=== PATIENT | male | born 1960 | race Caucasian/White ===

== ENCOUNTER 2019-05-01 08:09 | Inpatient (IN) | payer OTHER, SELFPAY ==
[2019-04-29 15:08] VITALS: BMI 30.5
[2019-05-01] VITALS (16 sets, daily range): BP systolic 106–157; BP diastolic 62–98; PULSE 87–113; RESP 9–20; TEMP 35.9–36.8; O2SAT 92–100; BMI 28.7
--- NOTE | 2019-05-01 | DI.RAD.S_ITS ---
PROCEDURE: XR LUMBAR SPINE 2-3V INDICATIONS: L45/S1 LAMINECTOMY AND INSTRUMENTED POSTERIOR FUSION TECHNIQUE: 2 views of the lumbar spine were acquired. COMPARISON: None. FINDINGS: 2 intraoperative fluoroscopy images demonstrate discectomy and posterior fusion at L4-L5-S1. Pedicular screws and fusion rods are in appropriate position. IMPRESSION: Discectomy and posterior fusion at L5-L5-S1. Dictated by: Ally Harrington M.D. on 05/01/2019 at 16:27 Approved by: Ally Harrington M.D. on 05/01/2019 at 16:28
[2019-05-01 08:45] LABS: Add Manual Diff / Slide Review NO; Basophils Absolute Auto 0 /uL (0-100); Basophils Percent Auto 0.3 % (0-2); Eosinophils Absolute Auto 100 /uL (0-450); Hematocrit 38.1 % (41-53); Hemoglobin 13.3 g/dL (13.5-17.5); Lymphocytes Absolute Auto 1300 /uL (1100-4500); Lymphocytes Percent Auto 27.2 % (25-40); Mean Corpuscular HGB Conc 34.9 % (30-36); Mean Corpuscular Hemoglobin 32.4 PG (26-34); Mean Corpuscular Volume 92.9 fL (80-100); Monocytes Absolute Auto 500 /uL (0-900); Monocytes Percent Auto 9.3 % (3-14); Neutrophils Absolute Auto 3100 /uL (1500-7000); Neutrophils Percent Auto 62.2 % (50-75); Platelet Count 334 X10^3/uL (150-400); Red Cell Distribution Width 12.8 % (11.6-14.8)
[2019-05-01 08:55] LABS: BUN Creatinine Ratio 18.6 (6-22); Blood Urea Nitrogen 13 mg/dL (9-20); Calcium 9.3 mg/dL (8.4-10.2); Carbon Dioxide 28 mmol/L (22-32); Chloride 101 mmol/L (98-107); Estimated Glomerular Filt Rate > 60.0 mL/min (>60); Glucose 114 mg/dL (70-100); HEMOLYSIS < 15 (0-50); Potassium 3.9 mmol/L (3.4-5.1); Sodium 139 mmol/L (137-145)
[2019-05-01] MEDS: LACTATED RINGERS 1,000 ML 42 ML IV ×2 (09:34→13:31)
--- NOTE | 2019-05-01 10:37 | PM.PREOP ---
Pre-operative Note Interval Note History & Physical reviewed/Exam performed by Physician: Yes Changes to H&P: No
[2019-05-01] MEDS: CEFAZOLIN 2 GM/100 ML FROZ.PIGGY IV ×2 (11:30→19:23)
--- NOTE | 2019-05-01 12:10 | SUR.OPER ---
Prone on spine table, head in foam head support, padded chest and pelvic supports, gel pad at knees, lower legs supported by pillows; nipples, genitalia and toes free of pressure, arms secured on foam padded arm boards at <90 degrees abduction. Tape over blanket at thigh secured to table.
[2019-05-01] MEDS: VANCOMYCIN 1,000 MG VIAL 1000 MG TOP (12:13)
[2019-05-01] MEDS: SODIUM CHLORIDE 0.9% 1,000 ML, GENTAMICIN 80 MG IRR (12:13)
[2019-05-01] MEDS: BUPIVACAINE 0.5% (PF) 4 ML, MORPHINE-PF 4 MG, BUTORPHANOL 1 MG, fentaNYL 100 MCG INJ (12:14)
[2019-05-01] MEDS: THROMBIN (RECOMBINANT) 5,000 UNIT VIAL 5000 UNIT TOP (12:18)
--- NOTE | 2019-05-01 15:50 | P.OP_ITS ---
Operative Date/Time/Diagnoses Date of procedure: 05/01/19 Time of procedure: 15:50 Pre-op diagnosis: Lumbar stenosis with radiculopathy Lumbar spondylolisthesis Post-op diagnosis: same Procedure & Clinicians Procedure: L4-5, L5-S1 TLIF (post/post innerbody fusion) with cages L4, L5, S1 instrumentation Iliac crest bone graft aspirate L4-5, L5-S1 laminectomies Use of microscope Placement of epidural catheter Same procedure as scheduled: Yes Indications: [age] year old male with intractable pain from stenosis. They had failed conservative management and requested operative intervention. Risks and benefits of surgery were discussed and appropriate consents were obtained. 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 A time-out was performed. They were then rolled over to the well- padded Earle table in the prone position. Preoperative antibiotics were given. The back was prepped and draped in the standard sterile fashion. Using fluoroscopy, a 4 cm longitudinal incision was made to the left of the midline. We used Bovie to come down to and split the lumbodorsal fascia. Using fluoroscopy and monitoring, we then percutaneously placed Jamshidi needles down the pedicles of L4, L5, and S1 on the left side. These were changed out to guidewires and then we tapped and then placed the NuVasive MAS Reline screw shanks. We then opened up the retractors at L5 and S1 and used Bovie to clear up the posterolateral gutter as well as medially along the lamina to the spinous processes. A bur was used to decorticate the transverse process and sacral ala of L5 and S1. We brought in the microscope. Using a combination of bur and Kerrison rongeurs, a laminectomy was performed from the left side at L5-S1. We cleared over past the midline and carefully depressed the dura until we were able to decompress the opposite side. We cleared out the neural foramen. The patient had a bifid nerve root at this level but we are able to gradually free this up so that we could retract the S1 nerve root medially along with the dura. We had do a facetectomy to open up the foramen adequately for the L5 root. This completed the laminectomy at L5-S1. We then began the TLIF prep. We removed more of the facet all the way up to the pedicle to prep at L5-S1. We tried to minimize all all of our retraction along the bifid root and the disc was exposed. The disc was prepped with bipolar and then an annulotomy was performed. We performed a diskectomy using a combination of paddles, duke, pituitaries, and curettes. We distracted the disc using a paddle and locked the retractor in an open position. We then filled the disc space with Osteocel bone graft. We then placed a 7 mm globus Rise cage under fluoroscopy and expanded it. We then filled this in with more bone graft. The distraction on the retractor was released to compress down. This completed the posterior interbody fusion portion of the TLIF at L5-S1. We then moved the retractor blade up to L4 and exposed the L4-5 gutter and lamina. The L4 transverse process was decorticated with the bur. We used a bur and Kerrison rongeur is to perform a laminectomy on the left at L4-5. We carefully cleared all the way across to the opposite side. We cleared out the neural foramen. The exiting L4 nerve root was crushed on the left-hand side. We had used an osteotome to remove all of the facet until we finally had enough space to expose the root. This completed the laminectomy at L4-5. This was separate and distinct from the prep for the TLIF as we had to do extensive canal decompression as well as decompression of the foramen. We then carefully retracted the dura medially and performed a diskectomy with an annulotomy. We prepped the disc with paddles and Duke and curettes and pituitaries. We placed bone graft into the disc space for the anterior fusion. We placed a 8 mm globus Rise cage and expanded under fluoroscopy and then added more bone graft afterwards. This completed the posterior interbody fusion portion of the TLIF at L45. We then placed the screw heads, karen, and locked down the set screws. The wound was copiously irrigated. A small stab incision was made over the PSIS. We used a Jamshidi needle to aspirate several mL of bone marrow from the pelvis. This was mixed with the remaining Osteocel and combined with all of the locally harvested bone graft and placed in the posterolateral gutter for the posterior fusion of the TLIF at L4-5 and L5-S1. An epidural catheter was then placed in the spinal canal by carefully depressing the dura and advancing it 6 cm cephalad under the remaining lamina without resistance. The muscle fascia was closed. The catheter was then injected with a solution containing 4 mL of 0.5% Marcaine, 1 mg Stadol, 4 mg Duramorph, and 100 mcg of fentanyl. This was injected without resistance and the catheter was pulled. We then went to the opposite side. Again using fluoroscopy, a 3 cm incision was made and Bovie was used to come down to split the fascia. Using neural monitoring and fluoroscopy, Jamshidi needles were advanced down the pedicles of L4, L5, and S1 on the right side. These were switched over guidewires, tapped, and screws placed. We then placed a karen and locked the set screws on this side. The wound was irrigated. The fascia was closed. Vancomycin powder was placed in the wounds. The superficial and skin were closed. A sterile dressing was placed. The patient was then rolled over extubated and brought to recovery room without complications. Complications: none Post-operative Condition: stable Disposition: PACU Plan for aftercare: Inpatient. Up with therapy.
[2019-05-01] MEDS: HYDROMORPHONE 2 MG INJ 0.5 MG IV ×3 (16:06→16:26)
[2019-05-01] MEDS: MEPERIDINE 50 MG/ML INJ 20 MG IV (16:21)
[2019-05-01] MEDS: hydrOXYzine 50 MG/ML INJ 25 MG IM (16:25)
--- NOTE | 2019-05-01 16:28 | SUR.PHASEI ---
Pt reported 2/10 pain when at rest.
--- NOTE | 2019-05-01 16:33 | SUR.PHASEI ---
Pt denied tingling or numbness to BLE. Intermittent trembling to BLE. Dr. Hoffman notified of shaking, Demerol ordered and given. Pt has reported feeling like he is wearing sunglasses and has earbuds in. Is responding to questions and commands appropriately.
--- NOTE | 2019-05-01 16:45 | SUR.PHASEI ---
Report called to [place].
--- NOTE | 2019-05-01 16:47 | SUR.PHASEI ---
Pt rated pain 2-3/10
--- NOTE | 2019-05-01 17:08 | SUR.PHASEI ---
Pt transferred to the floor with belongings bag, partial in place. VS stable. IV saline locked. Deja checked with RN. Report to [facility]
[2019-05-01] MEDS: LACTATED RINGERS 1,000 ML 125 ML IV (17:42)
[2019-05-01] MEDS: CELECOXIB 200 MG CAPSULE 400 MG PO (17:55)
[2019-05-01] MEDS: DOCUSATE 100 MG CAPSULE PO (20:42)
[2019-05-01] MEDS: HYDROCODONE/ACET 5/325 TABLET 1 TAB PO (20:42)
[2019-05-01] MEDS: GABAPENTIN 300 MG CAPSULE 900 MG PO (20:42)
[2019-05-01] MEDS: SENNOSIDES 8.6 MG TABLET 17.2 MG PO (20:42)
--- NOTE | 2019-05-01 22:12 | PC.NURSE ---
pt arrived 1656, drowsy, A&OX3. 94% 2L desat to 86 when sleeping. pulse ox. pt has hx sleep apnea, but does not use a cpap at home. gave 1 tab of norco for pain 01/03. foot scds on. romero patent. oriented pt to the room. call light in reach bed alarm active. pt currently laying on his rt. side.
[2019-05-01] MEDS: hydrOXYzine pamoate 25 MG CAPSULE PO (23:41)
--- NOTE | 2019-05-01 23:57 | PC.NURSE ---
Addendum entered by Mariah Gould R.N. 05/02/19 05:35: Slept only briefly. Taking in good po intake so IVF d'cd earlier. Complains of pain starting to intensify with current severity of 2/10; medicated with Vicodin + Vistaril per patient request; declined ice. Turned side to side to change underpad. Original Note: Patient is alert and oriented. Breath sounds CTA with RA sat of 95%; on continuous oximetry. HRR but tachy in low 100's. Denies nausea. BT hypoactive; denies flatus. Indwelling catheter is patent; urine clear, dark yellow. Assists in log rolling. Dressing to back is intact with shadow drainage noted. Complains of 7/10 pain with movement and 2/10 pain at rest; medicated with Vistaril (too early for additional Vicodin) and ice applied. Discussed that he can have IV pain medication if unable to wait until next Vicodin is due at 0042. Chronic numbness in bilateral hands unchanged. CMS is intact. Wearing foot SCD's. Fall risk is moderate; calls for assistance appropriately.
[2019-05-02] MEDS: HYDROCODONE/ACET 5/325 TABLET 2 TAB PO ×3 (01:04→14:23)
[2019-05-02] MEDS: CEFAZOLIN 2 GM/100 ML FROZ.PIGGY IV (02:30)
[2019-05-02] MEDS: HYDROCODONE/ACET 5/325 TABLET 1 TAB PO (05:22)
[2019-05-02] MEDS: hydrOXYzine pamoate 25 MG CAPSULE PO (05:23)
[2019-05-02 05:47] VITALS: BP 147/68; PULSE 108; RESP 16; TEMP 37; O2SAT 97
[2019-05-02 05:49] LABS: Hematocrit 31.4 % (41-53)
[2019-05-02] MEDS: PANTOPRAZOLE 20 MG TABLET PO (08:25)
[2019-05-02] MEDS: LOSARTAN 50 MG TABLET 100 MG PO (08:25)
[2019-05-02] MEDS: LORATADINE 10 MG TABLET PO (08:25)
[2019-05-02] MEDS: DOCUSATE 100 MG CAPSULE PO (08:26)
[2019-05-02] MEDS: CELECOXIB 200 MG CAPSULE PO (08:26)
[2019-05-02] MEDS: hydroCHLOROthiazide 25 MG TABLET PO (08:27)
[2019-05-02] MEDS: GLUCOSAMINE/CHONDROITIN CAPSULE 2 EACH PO (08:28)
[2019-05-02 08:42] VITALS: BP 122/84; PULSE 97; RESP 16; TEMP 37.2; O2SAT 96
--- NOTE | 2019-05-02 08:44 | PM.PNPO.1 ---
Subjective Subjective Date Patient Seen: 05/02/19 Time Patient Seen: 08:44 Interval history: He is doing very well. No more leg pain. Back pain is about 1/10 at rest but increases with activity. Exam Vital Signs (past 8 hours): - 05/02/19 05:47 05/02/19 08:42 Temperature 98.6 F 98.9 F Pulse Rate 108 H 97 H Respiratory Rate 16 16 Blood Pressure 147/68 H 122/84 Pulse Oximetry 97 96 Oxygen Delivery Method Room Air Oxygen Flow Rate 0 Const Orientation: alert and oriented x3 Back/Spine/Pelvis Other: CDI. 5/5 motor both lower extremities Objective Labs Result Diagrams: 05/02/19 05:15 05/01/19 08:34 Labs: Laboratory Results - last 24 hr 05/01/19 05/01/19 05/02/19 08:34 08:34 05:15 WBC 5.0 RBC 4.10 L Hgb 13.3 L 11.0 L Hct 38.1 L 31.4 L MCV 92.9 MCH 32.4 MCHC 34.9 RDW 12.8 Plt Count 334 Neut % (Auto) 62.2 Lymph % (Auto) 27.2 [place] % (Auto) 9.3 Eos % (Auto) 1.0 L Baso % (Auto) 0.3 Neut # (Auto) 3100 Lymph # (Auto) 1300 [place] # (Auto) 500 Eos # (Auto) 100 Baso # (Auto) 0 Sodium 139 Potassium 3.9 Chloride 101 Carbon Dioxide 28 BUN 13 Creatinine 0.70 Estimated GFR > 60.0 BUN/Creatinine Ratio 18.6 Glucose 114 H Calcium 9.3 Assessment & Plan Post-op Postoperative Procedures: Procedures Operation Date: 05/01/19 10:45 Actual Procedures Side Surgeon p L45, L5S1 laminectomy and instrumented posterior fusion w/ bone graft Breezy Colon MD He is doing very well. Mobilize today with physical therapy. He is hoping to be able to go home later on this afternoon. I explained him that he has to be able to pass physical therapy with stairs, getting on and off of the toilet, etc and needs to be independent. If he is doing well he could possibly go home later.
[2019-05-02] MEDS: GABAPENTIN 300 MG CAPSULE 900 MG PO ×2 (08:56→14:24)
--- NOTE | 2019-05-02 09:10 | PT.IIE ---
Current Diagnoses Spondylolisthesis, lumbar region (05/01/19) Spinal stenosis, lumbar region with neurogenic claudication (05/01/19) Surgery Performed Operation Date: 05/01/19 10:45 Actual Procedures p L45, L5S1 laminectomy and instrumented posterior fusion w/ bone graft - Breezy Colon MD Surgical History (Last Updated 04/29/19 @ 15:14 by Radha Herrera RN) H/O left wrist surgery (Acute) Hx of cervical discectomy (Acute) Hx of hernia repair (Acute) S/P cervical disc replacement (Acute) S/P epidural steroid injection (Acute) Medical History (Last Updated 04/29/19 @ 15:16 by Radha Herrera RN) Former smoker (Acute) GERD (gastroesophageal reflux disease) (Acute) HTN (hypertension) (Acute) Lumbar stenosis with neurogenic claudication (Acute) Spondylolisthesis (Acute) Physical Therapy Inpatient Evaluation/Re-Eval M1 PT/OT-IP Prior Functional Status Start: 05/02/19 12:07 Freq: NEEDED Status: Active Protocol: Document 05/02/19 09:10 AB (Rec: 05/02/19 12:19 AB [email or web address]) Medical Review Prior Functional Status Medical History Reviewed Yes Communication able to make needs known Mobility and Gait pt stated that he is independent with all mobilities and ambulation without AD Social History Household Members spouse Living Arrangements House Number of Floors (Floors) Two Floors Number of Stairs To Enter/Railing? 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 PT-IP Current Condition Start: 05/02/19 12:07 Freq: NEEDED Status: Active Protocol: Document 05/02/19 09:10 AB (Rec: 05/02/19 12:19 AB [id number]) Physical Therapy Current Condition Current Condition Evaluation Date 05/02/19 Treatment Diagnosis s/p L4-S1 TLIF/lami; difficulty in walking Onset Date 05/01/19 Precautions Lumbar Precautions Log Roll,No Twisting,Limit Bending,Lifting Restriction of 10 lbs,Gait Belt above Incisional Area M3 PT-IP Subjective Start: 05/02/19 12:07 Freq: NEEDED Status: Active Protocol: Document 05/02/19 09:10 AB (Rec: 05/02/19 12:19 AB [email or web address]) Subjective Physical Therapy Visit Type Type Initial Evaluation Visit Start Time 09:10 Visit Stop Time 10:01 Total Visit Minutes 51 Number of SATELLITE TELEVISION INSTALLER Visits 0 Physical Therapy Visit Comments Patient Comments pt agreeable to do PT Therapy Pain Assessment Pain When Pain Assessed During Mobility Pain Present Pain Present Pain Reported Location Back Intensity 15 Scale Used Numeric (1 - 10) Pain Management Techniques Apply Cold,Re-positioning, Timing of Activity with Medications M4 PT-IP Mobility and Gait Start: 05/02/19 12:07 Freq: NEEDED Status: Active Protocol: Document 05/02/19 09:10 AB (Rec: 05/02/19 12:19 [email or web address]) PT-Bed Mobility Assessment Supine to Sit Supine to Sit Standby Assistance Sit to Supine Sit to Supine Standby Assistance Scooting Scooting to Edge of Bed Standby Assistance Scooting Up and Down in Bed Standby Assistance PT-Transfer Assessment Sit to and From Stand Sit to and from Stand Standby Assistance,1 Person Assistance,Use of Upper Extremities Equipment Transfer Assistive Device Gait Belt,Front Wheeled Walker Orthotic/Prosthetic Devices or Brace: No Transfers Transfer Destination Chair Transfer Technique pt ambulated using FWW Transfer Ability Level of Assist Standby Assistance,Use of Upper Extremities Comments Mobility Comments pt completed bed mobility training x 4 reps initially requiring max cues but able to perform without cues after 2 reps. completed sit <>stand x 4 reps SBA with initial cues. Gait Assessment Gait Gait Assistance Required: Standby Assistance Distance (Feet) 300 Able to Maintain Weight Bearing Status Yes During Gait Assistive Devices Assistive Device Gait Belt,Front Wheeled Walker Gait Deviations General Gait Pattern Antalgic Factors Limiting Gait Function Factors Limiting Gait Function Decreased Activity Tolerance, Decreased Strength,Limited Range of Motion,Pain,Poor Balance Stair Climbing Assessment Evaluation Level of Assist On Stairs Standby Assistance Devices Stair Climbing Assistive Devices Left Railing,Right Railing Technique/Endurance Stair Climbing Direction Ascend and Descend Stair Climbing Technique Step to Step Number of Steps Climbed 3 Query Text: Stair Climbing Set # Repetitions (reps) 2 Comments Stair Climbing Comments pt completed up/down steps using bilateral rails step over step SBA completed up/down steps using 1 rail step to step SBA PT-Balance Assessment Sitting Balance and Reactions Static Sitting Balance Ability Good Dynamic Sitting Balance Ability Good Standing Balance and Reactions Static Standing Balance Ability Fair Dynamic Standing Balance Ability Fair Device Used FWW M5 PT-IP Objective Assessments Start: 05/02/19 12:07 Freq: NEEDED Status: Active Protocol: Document 05/02/19 09:10 AB (Rec: 05/02/19 12:19 AB [email or web address]) Orientation Orientation/Cognition Level of Alertness Alert Orientation Name,Age,Birthday,Month,Date, Year,Day of Week,Place, Situation Safety Awareness Understands Safety Issues Memory Description No Deficits Noted Gross Range of Motion Lower Extremity ROM Assessment Within Functional Limits Strength Lower Extremity Strength Assessment Within Functional Limits Coordination Assessment Gross Coordination Gross Coordination WNL Sensation Assessment Sensation Gross Sensation WNL Muscle Tone Muscle Tone WNL Yes M6 PT-IP Treatment Start: 05/02/19 12:07 Freq: NEEDED Status: Active Protocol: Document 05/02/19 09:10 AB (Rec: 05/02/19 12:19 AB [email or web address]) Physical Therapy Treatment Education Education Provided Precautions,Weight Bearing Status,Post-Op Packet,Safety M7 PT-IP Assessment and Plan Start: 05/02/19 12:07 Freq: NEEDED Status: Active Protocol: Document 05/02/19 09:10 AB (Rec: 05/02/19 12:19 AB [email or web address]) PT Summary Assessment and Plan Potential Rehabilitation Potential Good Status of Condition at Evaluation Stable Summary Impairments Pain,ROM,Strength,Balance, Coordination,Sensation,Tone, Cognition,Bed Mobility, Transfers,Gait,Activity Tolerance Assessment Summary pt requirng SBA with mobility and plans to go home with spouse to assist him. pt may go home when medically stable. Goals Bed Mobility Goal Independent Transfer Goal Independent,Front Wheeled Walker Gait Goal Independent,Front Wheel Walker Gait Distance 350 Other Goals up/down 4 steps with R rail ascending mod I Days to Meet Goals 3 Frequency of Treatment Frequency Of Treatment Twice a Day Treatment Plan Physical Therapy Treatment Plan Bed Mobility Training,Transfer Training,Gait Training, Therapeutic Exercise,Balance Retraining,Post Op Education, Discharge Planning,Hot or Cold Pack,Neuromuscular Re-ed, Coordination Retraining,Manual Therapy Recommendations To Nursing Amount of Assist Needed Standby Assistance Discharge Recommendations PT Discharge Recommendations Home with Assistance Equipment Needed for Home Before FWW: pt stated that he can Discharge borrow his dad's FWW
[2019-05-02 11:26] VITALS: PULSE 106; RESP 22; O2SAT 95
[2019-05-02 11:45] VITALS: BP 127/70; PULSE 107; RESP 16; TEMP 36.9; O2SAT 96
--- NOTE | 2019-05-02 13:46 | OT.IP.EVAL ---
Current Diagnoses Spondylolisthesis, lumbar region (05/01/19) Spinal stenosis, lumbar region with neurogenic claudication (05/01/19) Surgery Performed Operation Date: 05/01/19 10:45 Actual Procedures p L45, L5S1 laminectomy and instrumented posterior fusion w/ bone graft - Breezy Colon MD Past Medical History (Last Updated 04/29/19 @ 15:16 by Radha Herrera RN) Former smoker (Acute) GERD (gastroesophageal reflux disease) (Acute) HTN (hypertension) (Acute) Lumbar stenosis with neurogenic claudication (Acute) Spondylolisthesis (Acute) Surgical History (Last Updated 04/29/19 @ 15:14 by Radha Herrera RN) H/O left wrist surgery (Acute) Hx of cervical discectomy (Acute) Hx of hernia repair (Acute) S/P cervical disc replacement (Acute) S/P epidural steroid injection (Acute) Occupational Therapy Inpatient Evaluation/Re-Eval M1 PT/OT-IP Prior Functional Status Start: 05/02/19 12:07 Freq: NEEDED Status: Active Protocol: Document 05/02/19 13:34 CGR (Rec: 05/02/19 13:45 CGR [id number]) Medical Review Prior Functional Status Medical History Reviewed Yes Communication able to make needs known Mobility and Gait pt stated that he is independent with all mobilities and ambulation without AD Activities of Daily Living and IADL's Pt was IND with all ADLs and IADLs. Social History Household Members spouse Living Arrangements House Number of Floors (Floors) Two Floors Number of Stairs To Enter/Railing? 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 Diagnosis Onset Date 05/01/19 Post Operative Precautions Lumbar Precautions Log Roll,No Twisting,Limit Bending,Lifting Restriction of 10 lbs,Gait Belt above Incisional Area M3 OT- IP Subjective and Pain Start: 05/02/19 13:33 Freq: Status: Active Protocol: Document 05/02/19 13:34 CGR (Rec: 05/02/19 13:45 CGR [id number]) OT- Subjective Occupational Therapy Visit Type Type Initial Evaluation Visit Start Time 10:16 Visit Stop Time 11:15 Total Visit Minutes 59 Notes Pt's presetn throughout session. Occupational Therapy Visit Comments Patient Comments Oh my gosh, I wouldn't have throught about how to get dressed! OT Pain Assessment Pain When Pain Assessed At Rest Pain Present Pain Present Pain Reported Location Back Intensity 1 Scale Used Numeric (1 - 10) Management Techniques Distraction,Timing of Activity with Medications M4 OT- IP ADL's Start: 05/02/19 13:33 Freq: Status: Active Protocol: Document 05/02/19 13:34 CGR (Rec: 05/02/19 13:45 CGR [id number]) OT [id number] Comments OT Self-Feeding Comments Not meal time. OT ADL-Grooming General Evaluation Grooming Ability Independent Areas Needing Assistance Face Washing Comments OT Grooming Comments standing at sink OT ADL-Oral Care General Eval Oral Care Ability Independent Areas of Assistance Brushing Teeth Comments Oral Care Comments standing at sink OT ADL-Dressing General Eval Upper Body Dressing Ability Independent Lower Body Dressing Ability Independent Areas Needing Assistance Underpants/Brief,Pants/Shorts, Socks,Shoes Assistive Devices Dressing Assistive Devices Dressing Stick,Dental Associate,Sock Aid Comments OT Dressing Comments Pt educated on how to use hip kit and then practiced socks x 3 and underwear. Pt assisted with finding duplicate hip kit on his [employer] cammy per pt request. OT ADL-Toileting General Evaluation Toileting Ability Independent Comments OT Toileting Comments Educated on safe use of walker for standing urination and toilet transfers. OT ADL-Bathing Comments OT Bathing Comments Not performed in this session. M5 OT- IP IADL's Start: 05/02/19 13:33 Freq: Status: Active Protocol: Document 05/02/19 13:34 CGR (Rec: 05/02/19 13:45 CGR [id number]) OT-Instrumental Activities of Daily Living Deficits IADL Deficits Identified No Deficits Home Safety Awareness Awareness of Need for Assistance at Home Good Awareness Ability to Problem Solve Emergency Able to Problem Solve Situations Medication Management Medication Management No Deficits Identified Money Management Money Management No Deficits Identified Meal Preparation Meal Preparation Caregiver Provides Assist Vocal Artist Vocal Artist Caregiver Provides Assist Driving Driving Caregiver Provides Assist M6 OT- IP Functional Cognition Start: 05/02/19 13:33 Freq: Status: Active Protocol: Document 05/02/19 13:34 CGR (Rec: 05/02/19 13:45 CGR [id number]) Cognitive Factors Limiting Selfcare Function Cognitive Ability Level of Alertness Alert Patient Orientation Name,Age,Birthday,Month,Date, Year,Day of Week,Place, Situation Attention Span Ability Capable of Focused Attention, Capable of Sustained Attention Ability to Follow Commands Able to Follow Multi-Step Commands Memory Description No Deficits Noted Safety Awareness No Deficits Noted Problem Solving Ability No deficits Noted Executive Function Ability No Deficits Noted Abstract Thinking Ability No Deficits Noted OT- Vision and Hearing OT- Hearing Assessment OT- Hearing Assessment WFL OT- Vision Assessment Visual Acuity Glasses For Reading Visual Attentiveness WFL Occular Pursuits WFL Visual Convergence WFL Visual Nina WFL Diplopia Absent M7 OT- IP Mobility and Balance Start: 05/02/19 13:33 Freq: Status: Active Protocol: Document 05/02/19 13:34 CGR (Rec: 05/02/19 13:45 CGR [id number]) OT-Transfer Assessment Sit to and From Stand Sit to and from Stand Standby Assistance Transfers Transfer Ability Standby Assistance Technique Transfer Destination Chair,Toilet Transfer Technique Stand Step Pivot Devices Transfer Assistive Devices Gait Belt,Front Wheeled Walker OT- Gait Assessment Gait Gait Assistance Required: Standby Assistance Assistive Devices Assistive Device Gait Belt,Front Wheeled Walker Comments Gait Ability Comments mobility aroudn the room with verbal cues for reminders on how to use the walker for increased safety. OT- Balance Assessment Sitting Balance and Reactions Static Sitting Balance Ability Normal Dynamic Sitting Balance Ability Normal Standing Balance and Reactions Static Standing Balance Ability Normal Dynamic Standing Balance Ability Normal M8 OT- IP Objective Assessments Start: 05/02/19 13:33 Freq: Status: Active Protocol: Document 05/02/19 13:34 CGR (Rec: 05/02/19 13:45 CGR [id number]) OT Gross Range of Motion Upper Extremity Range of Motion Assessment Within Functional Limits OT Strength Upper Extremity Strength Assessment Within Functional Limits OT- Coordination Assessment Upper Extremity Finger to Nose Test Within Functional Limits Finger Tapping Test Within Functional Limits OT-Muscle Tone Assessment Muscle Tone WNL Yes OT Sensation Assessment Comments Summary Comments Pt states typical sensation to the hands and arms. Edema Edema Absent M9 OT- IP Assessment and Plan Start: 05/02/19 13:33 Freq: Status: Active Protocol: Document 05/02/19 13:34 CGR (Rec: 05/02/19 13:45 CGR [id number]) OT Summary Assessment and Plan Potential Rehabilitation Potential Excellent Analytic Complexity at Evaluation Low Summary OT Impairments Pain Progress Towards Goals Goals Met Assessment Summary Pt presents as a low complexity evaluation. Pt is progressing well s/p surgery and is participatory in self care using DME to maintain back precautions. present to assist with reminders in the future. Pt likely to progress well at home. Frequency of Treatment Frequency Of Treatment Discharge Discharge Recommendations OT Discharge Recommendations Home with Assistance Home Equipment Needs Pt has all necessary equipment . To order hip kit, family to get him a walker and shower chair.
--- NOTE | 2019-05-02 15:30 | PT.IPTN ---
Current Diagnoses Spondylolisthesis, lumbar region (05/01/19) Spinal stenosis, lumbar region with neurogenic claudication (05/01/19) Surgery Performed Operation Date: 05/01/19 10:45 Actual Procedures p L45, L5S1 laminectomy and instrumented posterior fusion w/ bone graft - Breezy Colon MD Physical Therapy Treatment Note M2 PT-IP Current Condition Start: 05/02/19 12:07 Freq: NEEDED Status: Active Protocol: Document 05/02/19 09:10 AB (Rec: 05/02/19 12:19 AB [id number]) Physical Therapy Current Condition Current Condition Evaluation Date 05/02/19 Treatment Diagnosis s/p L4-S1 TLIF/lami; difficulty in walking Onset Date 05/01/19 Precautions Lumbar Precautions Log Roll,No Twisting,Limit Bending,Lifting Restriction of 10 lbs,Gait Belt above Incisional Area M3 PT-IP Subjective Start: 05/02/19 12:07 Freq: NEEDED Status: Active Protocol: Document 05/02/19 15:30 GGD (Rec: 05/02/19 15:49 GGD [id number]) Subjective Physical Therapy Visit Type Type Treatment Note Visit Start Time 15:15 Visit Stop Time 15:30 Total Visit Minutes 15 Physical Therapy Visit Comments Patient Comments Pt states he would like to D/C home today. Therapy Pain Assessment Pain When Pain Assessed During Mobility Pain Present Pain Present Pain Reported Location Back Intensity 4 Scale Used Numeric (1 - 10) M4 PT-IP Mobility and Gait Start: 05/02/19 12:07 Freq: NEEDED Status: Active Protocol: Document 05/02/19 15:30 GGD (Rec: 05/02/19 15:49 GGD [id number]) PT-Bed Mobility Assessment Rolling Type of Rolling Log Rolling,Bilateral Level of Assist Independent Supine to Sit Supine to Sit Independent Sit to Supine Sit to Supine Independent Scooting Scooting to Edge of Bed Independent PT-Transfer Assessment Sit to and From Stand Sit to and from Stand Standby Assistance,1 Person Assistance,Use of Upper Extremities Equipment Transfer Assistive Device Gait Belt,Front Wheeled Walker Orthotic/Prosthetic Devices or Brace: No Transfers Transfer Destination Bed,Chair Transfer Ability Level of Assist Standby Assistance,Use of Upper Extremities Gait Assessment Gait Gait Assistance Required: Standby Assistance Distance (Feet) 150 Able to Maintain Weight Bearing Status Yes During Gait Assistive Devices Assistive Device Gait Belt,Front Wheeled Walker Gait Deviations General Gait Pattern Antalgic Factors Limiting Gait Function Factors Limiting Gait Function Decreased Activity Tolerance, Decreased Strength,Limited Range of Motion,Pain,Poor Balance M5 PT-IP Objective Assessments Start: 05/02/19 12:07 Freq: NEEDED Status: Active Protocol: Document 05/02/19 09:10 AB (Rec: 05/02/19 12:19 AB [id number]) Orientation Orientation/Cognition Level of Alertness Alert Orientation Name,Age,Birthday,Month,Date, Year,Day of Week,Place, Situation Safety Awareness Understands Safety Issues Memory Description No Deficits Noted Gross Range of Motion Lower Extremity ROM Assessment Within Functional Limits Strength Lower Extremity Strength Assessment Within Functional Limits Coordination Assessment Gross Coordination Gross Coordination WNL Sensation Assessment Sensation Gross Sensation WNL Muscle Tone Muscle Tone WNL Yes M6 PT-IP Treatment Start: 05/02/19 12:07 Freq: NEEDED Status: Active Protocol: Document 05/02/19 15:30 GGD (Rec: 05/02/19 15:49 GGD [id number]) Physical Therapy Treatment Education Education Provided Precautions,Safety M7 PT-IP Assessment and Plan Start: 05/02/19 12:07 Freq: NEEDED Status: Active Protocol: Document 05/02/19 15:30 GGD (Rec: 05/02/19 15:49 GGD [id number]) PT Summary Assessment and Plan Summary Assessment Summary Pt improving with mobility. He was able to progress bed mobility and sit <> stand. Pt safe for home D/C when medically stable. Frequency of Treatment Frequency Of Treatment Twice a Day Treatment Plan Physical Therapy Treatment Plan Bed Mobility Training,Transfer Training,Gait Training, Therapeutic Exercise,Balance Retraining,Post Op Education, Discharge Planning,Hot or Cold Pack,Neuromuscular Re-ed, Coordination Retraining,Manual Therapy Recommendations To Nursing Amount of Assist Needed Standby Assistance Discharge Recommendations PT Discharge Recommendations Home with Assistance
--- NOTE | 2019-05-02 16:35 | PC.NURSE ---
Pt received all discharge instructions and prescriptions; followup appointments made and all questions dealt with. Pt left unit at approx 1615, with all of his belongings and in wheelchair. IV removed, back dressing changed. SO was with patient.
--- NOTE | 2019-05-03 16:59 | CM.DANOTE ---
Discharge Planning/Care Management DCP: assessment: Late Entry for 05/02 : Case was received 05/02/ EMR reviewed and discussed in Team Rounds. Pt is a 59 year old male who admitted 05/01 for a planned spinal surgery: Surgeon: Dr. Colon. [facility]if[facility] OT and PT were ordered. Dr. oClon saw him yesterday and said that he should work PT and OT and, if cleared for home setting should be able to d/c later in the day. Had planned to check in this morning and follow prn for any d/c needs that might arise. Pt had identified his plan as home with his spouse's supportive assist and not d/c needs were anticipated by the care team members. A check in this morning showed that pt did do well in afternoon sessions and was able to d/c home with has spouse Eli at 1615. CM Discharge Assessment Start: 05/03/19 16:58 Freq: Status: Discharge Protocol: Document 05/03/19 16:59 ITV (Rec: 05/03/19 16:59 ITV [id number]) Discharge Planning Assessment Advance Directives? No History Provided By Medical Record Prior Living Arrangements House Household Members spouse Independent with ADL's Yes Is patient alert and oriented? Yes Discharge Plan Home Review Status In Process Pre-Anesthesia Assessment Start: 04/29/19 15:08 Freq: Status: Complete Protocol: Document 04/29/19 15:08 CAB (Rec: 04/29/19 15:24 CAB [id number]) Pre-Anesthesia Assessment Patient Information Reviewed Via Chart Review Diagnostic Results EKG Primary Care Provider Joni Peralta Seen Specialist in Last 12 Months Yes Specialist Seen Orthopedist Primary Language Icelandic Integrated Marketing Specialist Required No Height 180.34 cm Weight 99.337 kg Body Mass Index (BMI) 30.5 Barriers to Learning None Other Aids No Anesthesia Review Requested No alcohol intake current Alcohol Intake Frequency Other: Occasional Smoking Status Former smoker Pain Present Pain Reported Musculoskeletal Symptoms Limited Range of Motion,Neck Pain Patient is completely paralyzed or No completely immobile Mental Status Oriented to own ability Hx Sleep Apnea No Currently Taking a Beta Lucita No Anti-Coagulant Therapy No Has a Emergency Manager No Cardiac Testing No Hx Pacemaker/ICD No Pacemaker Rep Required? No Cardiac Clearance Received Not Applicable dysphagia No Urinary Catheter Present No Hx Urinary Self Catheterization No Diabetes No HgbA1C 5.8 Date 02/05/19
== END 2019-05-02 16:15 | disposition home or self-care (01) | DRG 455 ==
PROVIDERS: Admitting Provider Orthopaedic Surgery; Visit Provider Orthopaedic Surgery
PROC: 0SG00AJ Fusion of Lumbar Vertebral Joint with Interbody Fusion Device, Posterior Approach, Anterior Column, Open Approach (ICD-10-PCS; principal; 2019-05-01 10:45)
DX: M48.062 Spinal stenosis, lumbar region with neurogenic claudication (principal); M43.16 Spondylolisthesis, lumbar region; I10 Essential (primary) hypertension; K21.9 Gastro-esophageal reflux disease without esophagitis; Z87.891 Personal history of nicotine dependence
CPT/HCPCS: 36415; 72100; 76000; 80048; 85014; 85018; 85025; 94760; 94762; 97116; 97161; 97165; 97530; 97535; C1776; J0330; J0595; J0690; J1100; J1170; J2175; J2274; J2405; J2704; J3010; J3410